=== PATIENT | female | born 1990 ===

== ENCOUNTER 2017-12-15 16:15 | Emergency (ER) | payer BC ==
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
--- NOTE | 2017-12-15 17:37 | RAD ---
PROCEDURE: Left forearm dated 12/15/2017 HISTORY: Fall COMPARISON: Correlation made with concurrent left wrist radiographs. TECHNIQUE: Two views of the left forearm performed. FINDINGS: Current study reveals comminuted intra-articular fracture through the distal left radius. . Mild dorsal angulation of the distal radial fragment There is also a nondisplaced fracture of the distal ulna styloid. IMPRESSION: Comminuted intra-articular fracture through the distal left radius with mild dorsal angulation of the distal radial fragment. There is also a nondisplaced fracture of the distal ulna styloid.
--- NOTE | 2017-12-15 17:39 | RAD ---
PROCEDURE: Left Wrist Radiographs. HISTORY: Fall COMPARISON: None. FINDINGS: BONES: Comminuted intra-articular fracture through the distal left radius with mild dorsal angulation of the distal radial fragment. There is also a nondisplaced fracture of the distal ulna styloid. JOINTS: Normal. No dislocation. SOFT TISSUES: Normal. OTHER FINDINGS: None. IMPRESSION: Comminuted intra-articular fracture through the distal left radius with mild dorsal angulation of the distal radial fragment. There is also a nondisplaced fracture of the distal ulna styloid.
[2017-12-15 18:08] VITALS: BP 131/85; PULSE 95; RESP 18; TEMP 98.2; O2SAT 99
== END 2017-12-15 18:40 | disposition home or self-care (01) ==
LOC: ED 16:15
DX: S52.572A Other intraarticular fracture of lower end of left radius, initial encounter for closed fracture (principal); S52.615A Nondisplaced fracture of left ulna styloid process, initial encounter for closed fracture; W19.XXXA Unspecified fall, initial encounter